=== PATIENT | female | born 1990 | race Hispanic/Latino ===

== ENCOUNTER 2017-03-03 13:58 | Inpatient (IN) | payer OTHER ==
[~2017-03-03 13:58] MED LIST: NORCO 5-325 TA1 EACH PO; PROZAC40 MG PO
--- NOTE | 2017-03-04 09:25 | NUR ---
03/04/17 0925 DELANO ADAMS 0855: DR. ADAMS IN TO TALK WITH MOM. 0910: REPORT GIVEN TO [facility] NURSE.
--- NOTE | 2017-03-07 09:34 | PR ---
[facility] [address] [facility] [place], [place] [address] Signed PP Progress Notes Datetime Report Generated by CPN: 03/07/2017 09:34 SUBJECTIVE: [id number] Pain: Within normal limits Nausea/Vomiting: Denies Flatus: Yes Bowel Movement: No Vital Signs: [id number] Vital Signs: Reviewed Notable Details: still slightly elevated BPs's EXAM: [id number] Cardiovascular: Normal Respiratory: Normal Abdomen/Uterus: Normal Lochia: Normal Vulva/Perineum: Not Done Breasts: Normal CVA Tenderness: Normal Extremities: Normal Incision: Normal Progress: Abnormal Exam Comments: Some difficulties w/ latching. Seeing Tamiko IMPRESSION/PLAN/PROCEDURES: [id number] Impression: Normal progression Plan: Discharge Other Plans: d/c iv Procedures: None Progress Notes: Doing well, no ABERNATHY's, no vision changes, minial pain. Ready to go home. Signing Physician: Dion Elaine MD CC: *Electronically Signed* 03/07/17 0934 DION ELAINE MD PATIENT NAME: VALE TAPIA PROGRESS NOTE DATE OF : [birth year] PHYSICIAN: DION ELAINE MD RPT #: [id number] REPORT IS CONFIDENTIAL AND NOT TO BE RELEASED WITHOUT AUTHORIZATION
--- NOTE | 2017-03-19 07:17 | OR ---
[address] [address] Signed DATE OF OPERATION: 03/04/2017 SURGEON: Gabo Real DO ATTENDING PHYSICIAN: Gabo Real DO METAL FABRICATOR HELPER: Mariya Tavares MD PREOPERATIVE DIAGNOSES: 1. Term . 2. PROM. 3. Failure to progress. 4. Preeclampsia without severe features. 5. Maternal fever. 6. GBS positive. POSTOPERATIVE DIAGNOSES: 1. Term . 2. PROM. 3. Failure to progress. 4. Preeclampsia without severe features. 5. Maternal fever. 6. GBS positive. ANESTHESIA: Epidural. ESTIMATED BLOOD LOSS: 700 mL. COMPLICATIONS: None. FINDINGS: Viable male born in the ROP position via primary low-transverse section. Nuchal cord x2, tight. Apgars 9 and 9 at 1 and 5 minutes respectively. Weight is 6 pounds 11 ounces. Normal uterus, tubes, and ovaries. Electronically Signed By: GABO REAL DO 03/19/17 0717 PATIENT NAME: VALE BASSETT OPERATIVE REPORT DATE OF : [birth year] PHYSICIAN: GABO REAL DO REPORT #: [id number] REPORT IS CONFIDENTIAL AND NOT TO BE RELEASED WITHOUT AUTHORIZATION [address] [address] Signed INDICATIONS: Ms. Bassett is a pleasant 27-year-old, G1, P0 female who presents with term and spontaneous rupture of membranes. Upon presentation, she had a very unfavorable cervix, 1 cm, 50% effaced. She was rarely marisa and Pitocin was initiated after a few hours. After slow progression, an IUPC was then placed. The patient became painful and epidural was kindly placed by Anesthesia. The cervix again demonstrated very little cervical change. Pitocin was stopped and oral Cytotec was initiated. The patient then had contractions every 1-2 minutes with fetus tolerating well. baseline then crept up into the 160s, again with good variability and accelerations. The patient was then developed one elevated temperature and decision was made to proceed with primary low transverse section. Risks, benefits and alternatives were discussed in detail with the patient. The patient understands and wishes to proceed with the procedure. TECHNIQUE: The patient was taken to the operating room. A time-out was performed to confirm correct patient and correct procedure. An epidural was bolused and found to be adequate. The patient was then prepped and draped in the supine position with a bump under the right hip and a Henderson catheter had previously been inserted. A vaginal and abdominal prep were completed. Ancef 2 g was given preoperatively per SCIP protocol. After confirming epidurals adequate for anesthesia, a Pfannenstiel skin incision was made approximately 2-3 cm above the pubic symphysis. Incision was carried down to and through the fascia. In the midline, fascial incision was extended bilaterally using sharp dissection. The rectus muscles were then dissected bluntly and sharply from the fascia and the peritoneum was entered bluntly and sharply. Peritoneal incision was extended bilaterally using sharp and blunt dissection. The lower uterine segment was then identified and an Ray self retractor was placed. Hysterotomy was then performed and extended bilaterally using blunt dissection. The surgeon's hand was then placed into the lower uterine segment and the head elevated into the abdomen. ROP position was noted and tight nuchal cord x2 was reduced. The was then delivered with the assistance of fundal pressure without difficulty. Upon delivery, the was vigorous and cried and oral nasopharynx were bulb suctioned. The cord was then doubly clamped and cut. The handed off to the waiting pediatric team for further care. A segment of the cord was obtained for culture and cord blood was obtained for routine analysis. The placenta was manually extracted and the uterine cavity cleared of all remaining products of conception and clot. The hysterotomy was then repaired using 0 Vicryl in a running locked suture. Pitocin was given to enhance uterine contractions and involution. A second vertical imbricating suture of 0 Vicryl was then applied with good reapproximation of the uterus. Some oozing was noted from the left corner of the hysterotomy. This was attempted to be made hemostatic with a zjfghu-mv-rglwv suture. This edge continued to bleed and was made hemostatic with O'Acme suture around the left uterine artery. A small amount of oozing Electronically Signed By: GABO REAL DO 03/19/17 0717 PATIENT NAME: VALE BASSETT OPERATIVE REPORT DATE OF : [birth year] PHYSICIAN: GABO REAL DO REPORT #: [id number] REPORT IS CONFIDENTIAL AND NOT TO BE RELEASED WITHOUT AUTHORIZATION [address] [address] Signed in the midline was made hemostatic with a ghzpea-ao-awciz suture and Bovie electrocautery. Uterus, ovaries and fallopian tubes were examined and found to be normal. The pelvis was then irrigated and found to be hemostatic. The Ray retractor was removed and ACell sheet was applied to the lower uterine segment after ensuring hemostasis. Peritoneum was then reapproximated using 2-0 Vicryl in a running nonlocked suture. Rectus was reapproximated using 0 Vicryl in interrupted simple sutures. The rectus was examined and found to be hemostatic. The fascia was then reapproximated using 0 Vicryl in a running nonlocked suture. ACell powder was applied to the subcu after ensuring hemostasis. Subcu was reapproximated using 3-0 Vicryl in a running nonlocked stitch. The skin was reapproximated using Quill suture with good hemostasis and cosmesis. Steri-Strips were applied and the uterus was Crede'd for minimal blood loss. The patient was then taken to PACU in good stable condition. Sponge, needle, and instrument counts correct x2 at the end of the procedure. Dr. Tavares was present and participated in all portions of the procedure. Gabo Real DO JDW/MELLISSAL /[id number] Electronically Signed By: GABO REAL DO 03/19/17 0717 PATIENT NAME: VALE BASSETT OPERATIVE REPORT DATE OF : [birth year] PHYSICIAN: GABO REAL DO REPORT #: [id number] REPORT IS CONFIDENTIAL AND NOT TO BE RELEASED WITHOUT AUTHORIZATION
== END 2017-03-07 11:55 | disposition home or self-care (01) | DRG 765 ==
LOC: FBCO 13:58 → FBC 14:20
PROVIDERS: ADMIT Obstetrics & Gynecology
PROC: 10D00Z1 Extraction of Products of Conception, Low, Open Approach (ICD-10-PCS; principal; 2017-03-04 07:50)
DX: O42.12 Full-term premature rupture of membranes, onset of labor more than 24 hours following rupture (principal); O98.82 Other maternal infectious and parasitic diseases complicating childbirth; Z3A.38 38 weeks gestation of pregnancy; Z37.0 Single live birth; O32.4XX0 Maternal care for high head at term, not applicable or unspecified; B95.1 Streptococcus, group B, as the cause of diseases classified elsewhere; O14.94 Unspecified pre-eclampsia, complicating childbirth; O69.1XX0 Labor and delivery complicated by cord around neck, with compression, not applicable or unspecified
CPT/HCPCS: 01961; 36415; 80053; 82570; 84156; 84550; 85025; 85027; C1763; J0690; J1100; J1170; J1644; J1885; J2274; J2370; J2405; J2540; J2550; J2590; J7120

== ENCOUNTER 2017-04-10 11:23 | Emergency (ER) | payer OTHER ==
[~2017-04-10] VITALS: Ht 147.3 cm; Wt 72.6 kg
[2017-04-10] MEDS ORDERED: PRENATAL ONE T1 EACH PO (11:37)
[2017-04-10] MEDS ORDERED: ZOFRAN4 MG PO (13:38)
[2017-04-10] MEDS ORDERED: NORCO 5-325 TA1 EACH PO (13:38)
[2017-04-19] MEDS ORDERED: IBUPROFEN600 MG PO (12:48)
[2017-04-19] MEDS ORDERED: HYDROCODON-ACE1 EA10 PO (12:48)
[2017-04-19] MEDS ORDERED: MAPAP325 MG PO (12:48)
== END 2017-04-10 13:55 | disposition home or self-care (01) ==
LOC: ED 11:23
DX: K80.50 Calculus of bile duct without cholangitis or cholecystitis without obstruction (principal); F17.200 Nicotine dependence, unspecified, uncomplicated; Z87.440 Personal history of urinary (tract) infections; Z79.899 Other long term (current) drug therapy
CPT/HCPCS: 80053; 83690; 85025; 96374; 96375; 96376; 99283; J1170; J2405

== ENCOUNTER 2019-11-08 11:06 | Observation (INO) | payer OTHER ==
[~2019-11-08] VITALS: Ht 144.8 cm; Wt 55.8 kg
[~2019-11-08 11:06] MED LIST changes: +HYDROCODON-ACE1 EA10 PO; +IBUPROFEN600 MG PO; +MAPAP325 MG PO; +PRENATAL ONE T1 EACH PO; +ZOFRAN4 MG PO
[2019-11-09] MEDS ORDERED: IBU800 MG PO (12:14)
[2019-11-09] MEDS ORDERED: PERCOCET 5-3251 EACH PO (12:15)
[2019-11-09] MEDS ORDERED: ZOFRAN8 MG PO (12:16)
--- NOTE | 2019-11-11 07:31 | PATH ---
[facility] [address] [facility] [place], [place] [address] Signed ORDERING PHYSICIAN: Jt Canela MD PATIENT NAME: VALE TAPIA GENDER: F : 1990 SPECIMEN(S): No Source Given MOLECULAR PATHOLOGY RESULTS: SARS-CoV-2 Not Detected ADDITIONAL NOTES.: The [place] Fusion SARS-CoV-2 Assay is a multiplex real-time PCR (RT-PCR) in vitro diagnostic test intended for the qualitative detection of RNA from SARS-CoV-2 from individuals who meet COVID-19 clinical and/or epidemiological criteria. In general, SARS-CoV-2 RNA can be detected during the acute phase of infection. Positive results indicate the presence of SARS-CoV-2 RNA. Clinical correlation with patient history and other diagnostic information is necessary to determine patient infection status. Positive results do not rule out bacterial infection or co-infection with other viruses. Negative results do not preclude SARS-CoV-2 infection and should not be used as the sole basis for patient management decisions. Negative results must be combined with other clinical observations, patient history, and epidemiological information. The [place] Fusion SARS-CoV-2 Assay is not yet approved or cleared by the [place] FDA. When there are no FDA-approved or cleared tests available, and other criteria are met, FDA can make tests available under an emergency access mechanism called an Emergency Use Authorization (EUA). The EUA for this test is supported by the Day Care Provider of Health and Human Service's (HHS's) declaration that circumstances exist to justify the emergency use of in vitro diagnostics for the detection and/or diagnosis of the virus that causes COVID-19. This EUA will remain in effect for the duration of the COVID-19 declaration justifying emergency of IVDs, unless it is terminated or revoked by FDA, after which the test may no longer be used. The [place] Fusion SARS-CoV-2 Assay is for use only under EUA in US laboratories certified under the Clinical Laboratory Improvement Amendments of 1988 (CLIA) to perform high complexity tests. [facility] by [facility] is certified under CLIA to perform high complexity PATIENT NAME: VALE TAPIA PATHOLOGY DATE OF : [birth year] REPORT #: [id number] PHYSICIAN: CHICA COLEY PCP: NO PRIMARY CARE PHYSICIAN REPORT IS CONFIDENTIAL AND NOT TO BE RELEASED WITHOUT AUTHORIZATION [address] [address] Signed clinical laboratory testing. PERFORMING LABORATORY.: Molecular testing was performed by [facility] [address] [place] [id number] (Claims Attorney: Keegan Jones D.O.; CLIA#: [id number]) Diagnostician: System Interface Pathologist Electronically Signed 11/11/2019 Copies: ~ PATIENT NAME: VALE TAPIA PATHOLOGY DATE OF : [birth year] REPORT #: [id number] PHYSICIAN: CHICA COLEY PCP: NO PRIMARY CARE PHYSICIAN REPORT IS CONFIDENTIAL AND NOT TO BE RELEASED WITHOUT AUTHORIZATION
--- NOTE | 2019-11-11 07:39 | ER ---
[facility] [address] [place], [place] [address] Signed DATE OF SERVICE: 11/08/2019 HISTORY OF PRESENT ILLNESS: The patient is a 29-year-old female, 1, para 1, with an LMP of 09/28, seen in the emergency room with acute onset of pelvic pain after intercourse last p.m. Her pain was initially in the low abdomen, possibly more on the right, but overnight it became more upper abdominal pain and she also developed right shoulder pain. She had pain with any movement. She denied any dizziness or lightheadedness. She has had some nausea and vomiting. She has had normal BMs x2 since the event. She denies any abdominal trauma. She reports intercourse itself was not painful. She does have a long history of abnormal irregular bleeding. She stopped control pills in approximately June because of anxiety and panic attacks. She is currently using condoms for control. She has no history of prior ruptured ovarian cysts. REVIEW OF SYSTEMS: Completely negative. She denied any fever. No dysuria. No current bleeding. PAST MEDICAL HISTORY: Surgeries in 02/2017, section, 04/2017 lap choly. Illnesses: Negative for hypertension, diabetes, murmur, asthma, liver and kidney problems, migraines. Positive history of anxiety and panic attacks, on OCPs and an IUD, though no current symptoms. MEDICATIONS: None. ALLERGIES: Shellfish--nausea/vomiting. HABITS: Positive for tobacco, 1/2 pack per day. Positive for alcohol use, 4 to 8 beers every weekend. Positive for marijuana use every other day. PHYSICAL EXAMINATION: VITAL SIGNS: Blood pressure is 108/77, pulse 70, temperature 98. GENERAL: She is a well-developed, well-nourished female, in no acute distress. She is quiet in bed, awake and alert. Affect is pleasant and cooperative. HEART: Regular rate and rhythm without murmur. LUNGS: Clear, but she does have pain with inspiration. ABDOMEN: Soft with active bowel sounds. She is diffusely tender, but she has no Electronically Signed By: MARIYA TAVARES MD 11/11/19 0739 PATIENT NAME: VALE TAPIA EMERGENCY ROOM REPORT DATE OF : [birth year] REPORT #: [id number] PHYSICIAN: MARIYA TAVARES MD PCP: NO PRIMARY CARE PHYSICIAN REPORT IS CONFIDENTIAL AND NOT TO BE RELEASED WITHOUT AUTHORIZATION [facility] [address] [place], [place] [address] Signed rebound. No CVA tenderness. PELVIC: Deferred. LABORATORY DATA: Admission H and H were 15 and 44.9. Subsequent hemogram at 1535 was 15.3 and 45.5. UA was negative. HCG is negative. Chem panel is negative. Ultrasound revealed a large amount of heterogeneous fluid throughout the abdomen. Normal uterus and apparently normal ovaries. IMPRESSION: 1. Probable ruptured ovarian cyst, given her classic symptoms and history. She appears very stable currently and I suspect the active bleeding has stopped, but given the amount of intraabdominal blood, I feel that a course of observation is indicated. If there is any significant drop in her H and H or she becomes more symptomatic, surgical intervention will be needed. 2. Tobacco abuse. 3. Irregular cycles. PLAN: 1. Serial H and H, n.p.o., IV fluids. 2. IV Dilaudid, Zofran, Reglan as needed. 3. Nicotine patch as desired. Mariya Tavares MD PJW/MODL /[id number] cc: Gabo Real DO Copies: GABO REAL DO ~ Electronically Signed By: MARIYA TAVARES MD 11/11/19 0739 PATIENT NAME: VALE TAPIA EMERGENCY ROOM REPORT DATE OF : [birth year] REPORT #: [id number] PHYSICIAN: MARIYA TAVARES MD PCP: NO PRIMARY CARE PHYSICIAN REPORT IS CONFIDENTIAL AND NOT TO BE RELEASED WITHOUT AUTHORIZATION
--- NOTE | 2019-11-11 07:43 | OR ---
[facility] [address] [facility] [place], [place] [address] Signed DATE OF OPERATION: 11/09/2019 SURGEON: Mariya Tavares MD PREOPERATIVE DIAGNOSIS: Hemoperitoneum, probable ruptured ovarian cyst. POSTOPERATIVE DIAGNOSIS: Hemoperitoneum, probable ruptured ovarian cyst with ruptured left ovarian corpus luteum. PROCEDURES: Laparoscopy, removal of left ovarian cyst, control of bleeding. ANESTHESIA: General ET. ESTIMATED BLOOD LOSS: Intraoperatively 20 mL, approximately 180 mL in the abdomen. DRAINS: None. INDICATIONS AND FINDINGS: The patient is a 29-year-old female, 1, para 1, who is not and an LMP of approximately September 28, who presented to the emergency room yesterday during the day with worsening abdominal pain, which began the night before after intercourse. Ultrasound revealed a large amount of blood within the abdomen. The patient was very stable. Her blood count was 45, which was unchanged over several hours, but given the amount of blood within the abdomen, it was felt prudent to keep her for observation. Overnight, she continued to do well, though her blood count serially declined from 45 to 40 and then this morning 36. Her vital signs were otherwise stable. It was felt that she did have some ongoing oozing and given the uncertain diagnosis, it was felt important to determine the source of bleeding and control this. She was extensively counseled and was taken to the operating room. Exam under anesthesia was unrevealing. At the time of laparoscopy, there was a large amount of blood within the abdomen. It eventually was shown that she had a ruptured left corpus luteum cyst with some active bleeding at the base. DESCRIPTION OF PROCEDURE: The patient was prepped and draped in the dorsal lithotomy position. An open-sided Electronically Signed By: MARIYA TAVARES MD 11/11/19 0743 PATIENT NAME: VALE TAPIA OPERATIVE REPORT DATE OF : [birth year] REPORT #: [id number] PHYSICIAN: MARIYA TAVARES MD PCP: NO PRIMARY CARE PHYSICIAN REPORT IS CONFIDENTIAL AND NOT TO BE RELEASED WITHOUT AUTHORIZATION [facility] [address] [place], [place] [address] Signed speculum was placed and the anterior lip of the cervix was visualized and grasped with a single-tooth tenaculum. Hulka clamp was then placed and the tenaculum and speculum were then removed. Attention was directed above. The infraumbilical area was injected with 0.5% Marcaine plain. An incision was made with a knife. Each layer was then serially elevated and incised until the fascia was opened and identified. Stay sutures of 0 Vicryl were placed. The peritoneum was opened bluntly. The Cowan was then placed and the balloon inflated. Placement of the scope confirmed proper positioning and CO2 was then introduced into the abdomen. There was a large amount of blood within the abdomen and at this point, the scope was removed and the suction baffle installer was placed with removal of a large amount of blood. Following this, the scope was replaced and the pelvis was visualized. There was quite a bit of blood, especially around the left ovary. Following this, a 2nd port was made on the left side. This was slightly below the level of the umbilicus and lateral. This area was transilluminated, injected with the Marcaine, incision made with a knife and the trocar placed under direct vision. Following this, the pelvis was thoroughly evaluated and the ruptured left corpus luteum cyst was identified. It was felt that a 3rd port was needed to be able to address this completely. The area on the right side was transilluminated, injected with the Marcaine, incision made with a knife and the trocar placed under direct vision. This was essentially in the same area as on the left. Following this, the ovarian ligament was grasped and elevated. The corpus luteal type tissue was removed using the LigaSure [place] device. The base of the ovary after removal of this tissue was then treated with cautery. This was done with several different instruments including the spatula and the Dolphin tips. There was quite a bit of bleeding at the base and this took some time to control. Removal of the ovary was entertained because of the ongoing bleeding. However, eventually, the bleeding was controlled. The pressure was also turned down in the abdomen and the area re-evaluated. There was no evidence of any ongoing bleeding. Following this, the remaining blood from the abdomen was removed after placing the patient in reverse Trendelenburg and irrigating out as much blood as possible. Following this, the ovary was again re-evaluated and there was no evidence of any ongoing bleeding even with the pressure turned down. Because of the difficulty with her bleeding earlier, this ovary was treated with Tisseel, which was sprayed over the base. The patient's right ovary and tube were completely normal. Following this, the instruments were removed from the abdomen after allowing as much CO2 as possible to escape. The fascial incision at the umbilicus was reidentified and the remaining Tisseel was sprayed over the muscles to aid in hemostasis there. The fascial incision was closed with a running suture of 0 Vicryl. The stay sutures were tied across as well. The skin incisions were closed with subcuticular sutures of 3-0 Vicryl Rapide. Following this, attention was directed down below. The Henderson catheter which had been placed at the beginning of the surgery was removed and the vaginal instruments were removed. There was no evidence of any ongoing bleeding from the cervix. The patient was then taken to the recovery room in good condition. All sponge and needle counts were correct. Electronically Signed By: MARIYA TAVARES MD 11/11/19 0743 PATIENT NAME: VALE TAPIA OPERATIVE REPORT DATE OF : [birth year] REPORT #: [id number] PHYSICIAN: MARIYA TAVARES MD PCP: NO PRIMARY CARE PHYSICIAN REPORT IS CONFIDENTIAL AND NOT TO BE RELEASED WITHOUT AUTHORIZATION [address] [address] Signed Mariya Tavares MD PJW/MODL /[id number] cc: Gabo Real DO Copies: GABO REAL DO ~ Electronically Signed By: MARIYA TAVARES MD 11/11/19 0743 PATIENT NAME: VALE TAPIA OPERATIVE REPORT DATE OF : [birth year] REPORT #: [id number] PHYSICIAN: MARIYA TAVARES MD PCP: NO PRIMARY CARE PHYSICIAN REPORT IS CONFIDENTIAL AND NOT TO BE RELEASED WITHOUT AUTHORIZATION
--- NOTE | 2019-11-11 15:19 | PATH ---
[facility] [address] [place], [place] [address] Signed SPECIMEN(S): A PORTION OF CORPUS LUTEUM SPECIMEN SOURCE: A. PORTION OF CORPUS LUTEUM CLINICAL HISTORY: Intra-abdominal hemorrhage; probable ruptured ovarian cyst. FINAL PATHOLOGIC DIAGNOSIS: Portion of corpus luteum: - Fragments of tissue demonstrate features consistent with corpus luteum fragments and blood. TWK:cml:C2NR MICROSCOPIC EXAMINATION: Histologic sections of all submitted blocks are examined by light microscopy. These findings, together with the gross examination, support the pathologic diagnosis. GROSS DESCRIPTION: The specimen, labeled "CN, A.," and designated on the requisition "portion of corpus luteum," is received in formalin and consists of bowman-brown soft tissue/membranous fragments measuring 4.1 x 2.5 x 0.7 cm in aggregate. Specimen is filtered and entirely submitted in cassettes (A1-A2). AT (under the direct supervision of a pathologist) The Gross Description was prepared using a voice recognition system. The report was reviewed for accuracy; however, sound-alike word errors, addition and/or deletions may occur. If there is any question about this report, please contact Client Services. PERFORMING LABORATORY: The technical component was performed by [facility], [address] [place] [id number] ([employer] Salesperson: Soheila Pyle MD; CLIA# [id number]). [facility], [address] [address] (CLIA# [id number]). Diagnostician: Niraj Heard MD Pathologist Electronically Signed 11/11/2019 PATIENT NAME: VALE TAPIA PATHOLOGY DATE OF : [birth year] REPORT #: [id number] PHYSICIAN: [facility] PCP: NO PRIMARY CARE PHYSICIAN REPORT IS CONFIDENTIAL AND NOT TO BE RELEASED WITHOUT AUTHORIZATION [address] [address] Signed Copies: ~ PATIENT NAME: VALE TAPIA PATHOLOGY DATE OF : [birth year] REPORT #: [id number] PHYSICIAN: [facility] PCP: NO PRIMARY CARE PHYSICIAN REPORT IS CONFIDENTIAL AND NOT TO BE RELEASED WITHOUT AUTHORIZATION
== END 2019-11-09 15:54 | disposition home or self-care (01) ==
LOC: ED 11:06 → MS 11:07
PROVIDERS: ADMIT Obstetrics & Gynecology; ATTEND Obstetrics & Gynecology
PROC: 0W3G4ZZ Control Bleeding in Peritoneal Cavity, Percutaneous Endoscopic Approach (ICD-10-PCS; 2019-11-09)
PROC: 0UB14ZZ Excision of Left Ovary, Percutaneous Endoscopic Approach (ICD-10-PCS; principal; 2019-11-09 08:53)
DX: K66.1 Hemoperitoneum (principal); N83.12 Corpus luteum cyst of left ovary; F17.210 Nicotine dependence, cigarettes, uncomplicated; Z20.828 Contact with and (suspected) exposure to other viral communicable diseases
CPT/HCPCS: 00840; 36415; 76830; 76856; 80053; 81001; 83690; 84703; 85025; 85027; 86850; 86900; 86901; 88305; 96374; 96375; 96376; 99285-25; C9803; G0378; J0131; J0330; J1100; J1170; J1885; J2001; J2250; J2405; J2704; J2765; J3010; J7121

== ENCOUNTER 2021-08-17 12:12 | Emergency (ER) | payer OTHER ==
[~2021-08-17] VITALS: Ht 144.8 cm; Wt 67.5 kg
[~2021-08-17 12:12] MED LIST changes: +IBU800 MG PO; +PERCOCET 5-3251 EACH PO; +ZOFRAN8 MG PO
[2021-08-17] MEDS ORDERED: ASPIRIN81 MG PO (14:20)
[2021-08-17] MEDS ORDERED: MAGNESIUM250 MG PO (14:21)
[2021-08-17] MEDS ORDERED: PRENATAL MULTI1 EAC3 PO (14:21)
[2021-08-17] MEDS ORDERED: CYCLOBENZAPRINE10 MG PO ×2 (14:22)
== END 2021-08-17 17:03 | disposition home or self-care (01) ==
LOC: ED 12:12
DX: O99.891 Other specified diseases and conditions complicating pregnancy (principal); R50.9 Fever, unspecified; Z20.822 Contact with and (suspected) exposure to COVID-19; Z3A.22 22 weeks gestation of pregnancy; O99.332 Smoking (tobacco) complicating pregnancy, second trimester; F17.200 Nicotine dependence, unspecified, uncomplicated; Z91.013 Allergy to seafood; Z79.82 Long term (current) use of aspirin; Z79.899 Other long term (current) drug therapy
CPT/HCPCS: 81001; 87502; 99283; A9270; U0003

== ENCOUNTER 2021-12-15 05:00 | Inpatient (IN) | payer OTHER ==
[~2021-12-15] VITALS: Ht 149.9 cm; Wt 73.0 kg
[~2021-12-15 05:00] MED LIST changes: +ASPIRIN81 MG PO; +CYCLOBENZAPRINE10 MG PO; +MAGNESIUM250 MG PO; +PRENATAL MULTI1 EAC3 PO
--- NOTE | 2021-12-15 08:37 | NUR ---
12/15/21 0837 Sheets,[place] 0891 PT ARRIVED TO PACU ON RA, VSS. IV INFUSING IN LEFT HAND, SITE WNL LR WITH 20 PIT. PT DENIES CONCERNS. FUNDAL CHECK URTERUS IS LARGE IN SIZE BUT FIRM SCANT BLEEDING NOTED., [facility] CHARGE AWARE. 0836 [facility] CHARGE DOING FUNDAL CHECK AND NO CONCERNS AT THIS TIME. EDUCAITON GIVEN TO PT.
--- NOTE | 2021-12-16 09:22 | PR ---
[facility] [address] [place], [place] [address] Signed PP Progress Notes Datetime Report Generated by CPN: 12/16/2021 09:22 SUBJECTIVE: [id number] Pain: Within Normal Limits Nausea/Vomiting: Denies Flatus: Yes Bowel Movement: No Vital Signs: [id number] Vital Signs: Reviewed; Within Normal Limits EXAM: Ongoing Cardiovascular: Normal Respiratory: Normal Abdomen/Uterus: Normal Lochia: Normal Vulva/Perineum: Not Done Breasts: Not Done CVA Tenderness: Normal Extremities: Normal Incision: Normal Progress: Normal Exam Comments: Fundus firm U-2 nontender IMPRESSION/PLAN/PROCEDURES: [id number] Impression: Normal Progression Plan: Continue Present Management Progress Notes: Pt seen and examined. Doing well. Ambulating, voiding, and tolerating full diet. Pain and lochia minimal. well. No other concerns. Anticipate d/c home tomorrow. Reviewed d/c medications in detail and all questions answered. Signing Physician: Gabo Real DO Copies: ~ *Electronically Signed* 12/16/21921 GABO REAL DO PATIENT NAME: VALE TAPIA PROGRESS NOTE DATE OF : [birth year] PHYSICIAN: GABO REAL DO RPT #: [id number] REPORT IS CONFIDENTIAL AND NOT TO BE RELEASED WITHOUT AUTHORIZATION
--- NOTE | 2021-12-16 21:12 | NUR ---
Baby sleeping peacefully in crib. Mother sitting in chair with support person at her side. Mother denied any needs. Consented to prayer and blessing for baby. Offered prayer of thanks for new life and blessing for baby and family.
--- NOTE | 2021-12-17 10:53 | PR ---
[facility] [address] [facility] [address] [place], [place] [address] Signed PP Progress Notes Datetime Report Generated by CPN: 12/17/2021 10:53 SUBJECTIVE: [id number] Pain: Within Normal Limits Nausea/Vomiting: Denies Flatus: Yes Bowel Movement: No Vital Signs: [id number] Vital Signs: Reviewed; Within Normal Limits EXAM: Met Cardiovascular: Normal Respiratory: Normal Abdomen/Uterus: Normal Lochia: Normal Vulva/Perineum: Not Done Breasts: Not Done CVA Tenderness: Normal Extremities: Normal Incision: Normal Progress: Normal Exam Comments: Fundus firm U-2 nontender IMPRESSION/PLAN/PROCEDURES: [id number] Impression: Normal Progression Plan: Discharge Procedures: None Progress Notes: Doing well, without complaint, ready to go home. Signing Physician: Shalonda Elaine MD Copies: ~ *Electronically Signed* 12/17/21 1053 SHALONDA ELAINE MD PATIENT NAME: VALE TAPIA PROGRESS NOTE DATE OF : 90 PHYSICIAN: SHALONDA ELAINE MD RPT #: [id number] REPORT IS CONFIDENTIAL AND NOT TO BE RELEASED WITHOUT AUTHORIZATION
== END 2021-12-17 12:05 | disposition home or self-care (01) | DRG 787 ==
LOC: FBC 05:00
PROVIDERS: ADMIT Obstetrics & Gynecology; ATTEND Obstetrics & Gynecology
PROC: 10D00Z1 Extraction of Products of Conception, Low, Open Approach (ICD-10-PCS; principal; 2021-12-15 07:30)
DX: O34.211 Maternal care for low transverse scar from previous cesarean delivery (principal); D62 Acute posthemorrhagic anemia; Z3A.39 39 weeks gestation of pregnancy; Z37.0 Single live birth; O99.02 Anemia complicating childbirth; Z91.013 Allergy to seafood; Z90.49 Acquired absence of other specified parts of digestive tract; O99.334 Smoking (tobacco) complicating childbirth; F17.210 Nicotine dependence, cigarettes, uncomplicated; O99.62 Diseases of the digestive system complicating childbirth; K21.9 Gastro-esophageal reflux disease without esophagitis
CPT/HCPCS: 01961; 36415; 64488; 76942; 85027; 86850; 86900; 86901; A9270; J0690; J1100; J1650; J1885; J2001; J2274; J2405; J2590; J2795; J3010; J7121